=== PATIENT | female | born 1985 | race Hispanic/Latino ===

== ENCOUNTER 2021-01-29 18:49 | Emergency (ER) | payer BC, MEDICAID ==
[~2021-01-29] VITALS: Ht 157.5 cm; Wt 91.2 kg
[2021-01-29] MEDS ORDERED: PROMETHAZINE HCL 25 MG/ML 1ML AMPULE IM ONE (20:30)
[2021-01-29] MEDS ORDERED: 0.9%NACL 1000ML 1,000 ML IV ONE (20:30)
[2021-01-29] MEDS ORDERED: INSULIN HUMULIN R 100 UNIT/ML 3ML IV ONE (21:00)
[2021-01-29 21:24] LABS: BASOPHILS % (AUTO) 0.9 % (0.0-5.0); EOSINOPHILS % (AUTO) 1.5 % (0.0-8.0); HEMATOCRIT 39.7 % (36-48); LYMPHOCYTES % (AUTO) 27.3 % (21.0-51.0); MEAN CORPUSCULAR HEMOGLOBIN 25.8 pg (27.0-33.0); MEAN CORPUSCULAR HGB CONC 33.2 g/dL (32.0-36.0); MEAN CORPUSCULAR VOLUME 77.5 fL (79-99); PLATELET COUNT (AUTO) 246 K/uL (130-400); RED BLOOD CELL COUNT(AUTO) 5.12 MIL/uL (4.00-5.50); RED CELL DISTRIBUTION WIDTH 14.6 % (11.0-15.5); WHITE BLOOD COUNT (AUTO) 6.5 K/uL (4.8-10.8)
[2021-01-29 21:39] LABS: CREATININE 0.7 mg/dL (0.5-1.5); POTASSIUM 3.9 mmol/L (3.5-5.1)
[2021-01-29 21:43] LABS: BILIRUBIN,TOTAL 0.4 mg/dL (0.2-1.0); TOTAL PROTEIN, SERUM 7.4 g/dL (6.0-8.3)
[2021-01-29 22:03] LABS: APPEARANCE,URINE Clear (CLEAR); BILIRUBIN,URINE Negative (NEGATIVE); COLOR,URINE Yellow (YELLOW); GLUCOSE, URINE (UA) >=1000 mg/dL (NEGATIVE); KETONES,URINE >=160 mg/dL (NEGATIVE); LEUKOCYTE ESTERASE ,URINE Negative (NEGATIVE); NITRATE,URINE Negative (NEGATIVE); OCCULT BLOOD,URINE Negative (NEGATIVE); PH,URINE 5.5 (5.0-8.0); PROTEIN,URINE POS 1+ mg/dL (NEGATIVE)
[2021-01-29 22:12] LABS: BACTERIA,URINE Rare /HPF (None Seen); RBC,URINE 0-1 /HPF (0-1); WBC,URINE 0-1 /HPF (0-1); YEAST,URINE BUDDING Few /HPF (None Seen)
[2021-01-29 22:13] LABS: MUCUS,URINE Rare LPF (None Seen); SQUAMOUS EPITHELIAL CELL,UR Few /HPF (0-2)
[2021-01-29] MEDS ORDERED: FLUCONAZOLE 100 MG TAB PO ONE (22:30)
[2021-01-29 23:19] VITALS: BP 163/61
== END 2021-01-29 23:20 | disposition home or self-care (01) ==
LOC: EDH 18:49
DX: E11.65 Type 2 diabetes mellitus with hyperglycemia (principal); E87.1 Hypo-osmolality and hyponatremia; E86.0 Dehydration; B37.9 Candidiasis, unspecified; E66.9 Obesity, unspecified
CPT/HCPCS: 36415; 76705; 80053; 81001; 82948 ×2; 83690; 84484; 85025; 93005; 96361 ×2; 96372; 96374; 99285; J1815; J2550; J7030; 96375

== ENCOUNTER 2021-04-19 09:38 | Emergency (ER) | payer BC, MEDICAID ==
[~2021-04-19] VITALS: Ht 154.9 cm; Wt 85.7 kg
[2021-04-19 09:39] VITALS: BP 146/71
[2021-04-19] MEDS ORDERED: SULFAMETHOX-TMP DS 800/160 TAB PO SCH (10:00)
[2021-04-19] MEDS ORDERED: SULF1TAB42 PO (10:25)
== END 2021-04-19 10:44 | disposition home or self-care (01) ==
LOC: EDH 09:38
DX: L02.212 Cutaneous abscess of back [any part, except buttock and flank] (principal); E11.65 Type 2 diabetes mellitus with hyperglycemia; E03.9 Hypothyroidism, unspecified; G40.909 Epilepsy, unspecified, not intractable, without status epilepticus; E66.9 Obesity, unspecified; Z68.35 Body mass index [BMI] 35.0-35.9, adult
CPT/HCPCS: 10060; 82948

== ENCOUNTER 2021-06-08 23:20 | Emergency (ER) | payer BC, MEDICAID ==
[~2021-06-08] VITALS: Ht 154.9 cm; Wt 81.6 kg
[~2021-06-08 23:20] MED LIST: SULF1TAB42 PO
[2021-06-09 00:18] LABS: APPEARANCE,URINE Clear (CLEAR); BILIRUBIN,URINE Negative (NEGATIVE); COLOR,URINE Yellow (YELLOW); GLUCOSE, URINE (UA) >=1000 mg/dL (NEGATIVE); KETONES,URINE Trace mg/dL (NEGATIVE); LEUKOCYTE ESTERASE ,URINE Negative (NEGATIVE); NITRATE,URINE Negative (NEGATIVE); OCCULT BLOOD,URINE Negative (NEGATIVE); PH,URINE 5.5 (5.0-8.0); PROTEIN,URINE POS 1+ mg/dL (NEGATIVE); UROBILINOGEN,URINE 0.2 mg/dL (0.2-1.0)
[2021-06-09 00:29] LABS: CREATININE 0.7 mg/dL (0.5-1.5); POTASSIUM 3.6 mmol/L (3.5-5.1)
[2021-06-09 00:32] LABS: HCG,QUAL RESULT NEGATIVE (NEGATIVE)
[2021-06-09 00:33] LABS: ALBUMIN 3.7 g/dL (3.5-5.0); BILIRUBIN,TOTAL 0.2 mg/dL (0.2-1.0); TOTAL PROTEIN, SERUM 8.4 g/dL (6.0-8.3)
[2021-06-09 00:38] LABS: BACTERIA,URINE Few /HPF (None Seen); RBC,URINE 0-1 /HPF (0-1); SQUAMOUS EPITHELIAL CELL,UR Moderate /HPF (0-2)
[2021-06-09 00:40] LABS: EOSINOPHILS % (AUTO) 2.4 % (0.0-8.0); LYMPHOCYTES % (AUTO) 33.7 % (21.0-51.0); MEAN CORPUSCULAR HEMOGLOBIN 25.1 pg (27.0-33.0); MEAN CORPUSCULAR HGB CONC 32.9 g/dL (32.0-36.0); MEAN CORPUSCULAR VOLUME 76.3 fL (79-99); NEUTROPHILS % (AUTO) 55.7 % (40.0-77.0); PLATELET COUNT (AUTO) 293 K/uL (130-400); RED BLOOD CELL COUNT(AUTO) 4.98 MIL/uL (4.00-5.50); WHITE BLOOD COUNT (AUTO) 8.2 K/uL (4.8-10.8)
[2021-06-09] MEDS ORDERED: 0.9%NACL 1000ML 1,000 ML IV ONE ×2 (01:00→03:00)
[2021-06-09] MEDS ORDERED: ONDANSETRON 4MG INJ IVP ONE (03:00)
[2021-06-09 03:18] VITALS: BP 127/79
[2021-06-09] MEDS ORDERED: INSULIN HUMULIN R 100 UNIT/ML 3ML ONE (03:26)
[2021-06-09] MEDS ORDERED: INSULIN HUMULIN R 100 UNIT/ML 3ML SQ ONE (03:30)
[2021-06-09] MEDS ORDERED: METO-296 PO (03:44)
[2021-06-09] MEDS ORDERED: ONDA4TAB10 PO (03:44)
[2021-06-09] MEDS ORDERED: CEPH500B PO (03:49)
[2021-06-09] MEDS ORDERED: CEFTRIAXONE 1G VIAL ONE (03:52)
[2021-06-09] MEDS ORDERED: CEFTRIAXONE 1G VIAL IVP ONE (04:00)
== END 2021-06-09 04:17 | disposition home or self-care (01) ==
LOC: EDH 23:20
DX: E11.65 Type 2 diabetes mellitus with hyperglycemia (principal); N39.0 Urinary tract infection, site not specified; E86.9 Volume depletion, unspecified; R19.7 Diarrhea, unspecified; E03.9 Hypothyroidism, unspecified; Z79.4 Long term (current) use of insulin; Z79.899 Other long term (current) drug therapy
CPT/HCPCS: 36415; 80053; 81001; 81025; 82010; 82948 ×2; 83690; 85025; 96361; 96372; 96374; 96375; 99284; J0696; J1815; J2405; J7030